=== PATIENT | female | born 1950 | race Caucasian/White ===

== ENCOUNTER → 2018-02-07 | Outpatient (CLI) | payer MEDICARE, OTHER ==
[~2018-02-07] MED LIST: ALBU90OI; ALBU90OI INH; ASCO500 PO; BUDE200IP; CEPH500 PO; Calcium 500 MG1 EACH PO; Desyrel150 MG; Desyrel150 MG PO; Desyrel50 MG PO; FLUSAL2505 INH; FOLGARD TABLET1 EACH PO; LEVSOD112; LEVSOD125 PO; MEDR5 PO; OXYC1TAB11; PSEU120ER PO; SALMOI6.5; SERT100 PO; Synthroid125 MCG PO; THEO200ERA PO; THEO200ERB; TOCO400 PO; TRAZ50; Zoloft100 MG PO
[2018-02-08 11:54] LABS: Source, Urine Clean Catch
[2018-02-08 16:36] LABS: Appearance, Urine Hazy (Clear); Bilirubin, Urine Neg (Neg); Blood, Urine 1+ (Neg); Color, Urine Yellow (P-Yellow); Glucose Qualitative, Urine Neg (Neg); Ketones, Urine Neg (Neg); Leukocyte Esterase, Urine 3+ (Neg); Nitrite, Urine Pos (Neg); Protein, Urine Neg (Neg); Specific Gravity, Urine 1.015 (1.003-1.022); Urobilinogen, Urine NORM (Normal)
[2018-02-08 17:10] LABS: Bacteria Many /hpf; Squamous Epithelial Cells Few /hpf (Few)
== END ==
LOC: LAB 17:20 → LAB SHORT 17:20
PROVIDERS: Nurse Practitioner Family
DX: R82.90 Unspecified abnormal findings in urine (principal)
CPT/HCPCS: 81001; 87077; 87086; 87186

== ENCOUNTER → 2018-09-28 | Outpatient (CLI) | payer MEDICARE, OTHER ==
[~2018-09-28] MED LIST changes: +BIOTIN1 MG PO; +COENZYME Q-1050 MG PO; +LEVSOD100; +NAPR500 PO; +THEO300ERA PO; +VITAMIN D-32000 UNIT PO
[2018-09-28 19:49] LABS: Appearance, Urine Clear (Clear); Bilirubin, Urine Neg (Neg); Blood, Urine 1+ (Neg); Color, Urine Yellow (P-Yellow); Glucose Qualitative, Urine Neg (Neg); Ketones, Urine Neg (Neg); Leukocyte Esterase, Urine 3+ (Neg); Nitrite, Urine Neg (Neg); Protein, Urine Neg (Neg); Specific Gravity, Urine 1.025 (1.003-1.022); Urobilinogen, Urine NORM (Normal)
[2018-09-28 20:17] LABS: White Blood Cells, Urine 25-50 /hpf (0-5)
[2018-09-28 20:18] LABS: Bacteria Few /hpf; Red Blood Cells, Urine 0-2 /hpf (0-2); Squamous Epithelial Cells Rare /hpf (Few)
== END ==
LOC: LAB 16:00 → LAB SHORT 16:00
PROVIDERS: Nurse Practitioner Family
DX: R82.90 Unspecified abnormal findings in urine (principal)
CPT/HCPCS: 81001; 87077; 87086; 87186

== ENCOUNTER 2018-10-19 09:57 | Day surgery (SDC) | payer MEDICARE, OTHER ==
[~2018-10-19] VITALS: Ht 165.1 cm; Wt 70.8 kg
--- NOTE | 2018-10-19 10:21 | NUR ---
10/19/18 1021 Bartolo Benton History, Chart, Medications and Allergies reviewed before start of procedure.MONITOR INTACT WITH CONTINUOUS PULSE OXIMETRY AND INTERMITTENT BP.3-LEAD EKG REVIEWED WITH PHYSICIAN PRIOR TO START OF PROCEDURE.O2 VIA N/C INTACT THROUGHOUT SEDATION/PROCEDURE. Patient confirms NPO status and agrees with scheduled surgery.PATIENT DETERMINED TO BE ASA APPROPRIATE FOR PROPOFOL SEDATION PRIOR TO START OF PROCEDURE BY DR. SINGH.
--- NOTE | 2018-10-19 10:21 | NUR ---
ADMITTED TO UNIT VSS ALERT ORIENTED RIDE WENT HOME EXPECTING CALL WHEN PATIENT READY.Lungs clear T/O to Auscultation. Patient States Post-Procedure ride home has been arranged.
--- NOTE | 2018-10-19 11:19 | NUR ---
PT GIVEN MEDS PER MD ORDERS. PT EATING AND DRINKING. TOLERATING WELL.
--- NOTE | 2018-10-19 11:41 | NUR ---
Patient States Post-Procedure ride home has been arranged. Discharge instructions reviewed with patient. Patient verbalizes understanding. Copy given to patient to take home. RX CALLED TO [facility] Discharged via wheelchair to private car for ride home.
== END 2018-10-19 11:42 | disposition home or self-care (01) ==
LOC: ORSCMMR 09:57
PROVIDERS: Internal Medicine Gastroenterology
PROC: 0DB68ZX Excision of Stomach, Via Natural or Artificial Opening Endoscopic, Diagnostic (ICD-10-PCS; principal; 2018-10-19 10:30)
DX: R10.13 Epigastric pain (principal); K25.9 Gastric ulcer, unspecified as acute or chronic, without hemorrhage or perforation; J45.909 Unspecified asthma, uncomplicated; F32.9 Major depressive disorder, single episode, unspecified; Z98.84 Bariatric surgery status; E03.9 Hypothyroidism, unspecified; Z79.899 Other long term (current) drug therapy
CPT/HCPCS: 88305; 88341; 88342; C9113; J7120

== ENCOUNTER 2019-06-27 16:25 | Emergency (ER) | payer MEDICARE, OTHER ==
[~2019-06-27] VITALS: Ht 165.1 cm; Wt 62.1 kg
[2019-06-27] MEDS ORDERED: LEVSOD112 PO (17:43)
[2019-06-27] MEDS ORDERED: OMEP20ER PO (17:44)
[2019-06-27] MEDS ORDERED: CALCIUM 600 +1 EA11 PO (17:44)
[2019-06-27] MEDS ORDERED: Roxicodone5 MG PO (17:55)
[2019-06-27] MEDS ORDERED: BUPR100 PO (18:12)
== END 2019-06-27 18:27 | disposition home or self-care (01) ==
LOC: ER 16:25
DX: S42.211A Unspecified displaced fracture of surgical neck of right humerus, initial encounter for closed fracture (principal); W01.198A Fall on same level from slipping, tripping and stumbling with subsequent striking against other object, initial encounter; Z91.040 Latex allergy status; Z88.8 Allergy status to other drugs, medicaments and biological substances; Z79.899 Other long term (current) drug therapy; J45.909 Unspecified asthma, uncomplicated; Z87.891 Personal history of nicotine dependence
CPT/HCPCS: 73060; 99283-25

== ENCOUNTER 2019-07-03 14:34 | Day surgery (SDC) | payer MEDICARE ==
[~2019-07-03] VITALS: Ht 160 cm; Wt 63.1 kg
[~2019-07-03 14:34] MED LIST changes: +BUPR100 PO; +CALCIUM 600 +1 EA11 PO; +LEVSOD112 PO; +OMEP20ER PO; +Roxicodone5 MG PO
--- NOTE | 2019-07-03 15:05 | NUR ---
07/03/19 1505 Mitch Irving 1 IV ATTEMPT LEFT AC.
--- NOTE | 2019-07-03 16:10 | NUR ---
07/03/19 1610 Leila Gomez A GENERALIZED BRUISING TO RIGHT ARM, SHOULER AND CHEST AREA.
== END 2019-07-03 18:44 | disposition home or self-care (01) ==
LOC: ORSCSDS 14:34
PROVIDERS: Orthopaedic Surgery
PROC: 0PSC04Z Reposition Right Humeral Head with Internal Fixation Device, Open Approach (ICD-10-PCS; principal; 2019-07-03 15:15)
DX: S42.201A Unspecified fracture of upper end of right humerus, initial encounter for closed fracture (principal); J44.9 Chronic obstructive pulmonary disease, unspecified; Z87.891 Personal history of nicotine dependence; E03.9 Hypothyroidism, unspecified; Z79.899 Other long term (current) drug therapy; F41.8 Other specified anxiety disorders; K21.9 Gastro-esophageal reflux disease without esophagitis
CPT/HCPCS: C1713; J0690; J1100; J1885; J2250; J2405; J2704; J2795; J3010; J3370; J7120

== ENCOUNTER 2020-04-25 15:21 | Emergency (ER) | payer OTHER ==
[~2020-04-25] VITALS: Ht 165.1 cm; Wt 63.5 kg
[2020-04-25] MEDS ORDERED: Naprosyn500 MG PO (16:26)
== END 2020-04-25 16:50 | disposition home or self-care (01) ==
LOC: ER 15:21
DX: S52.571A Other intraarticular fracture of lower end of right radius, initial encounter for closed fracture (principal); S52.611A Displaced fracture of right ulna styloid process, initial encounter for closed fracture; Z91.09 Other allergy status, other than to drugs and biological substances; Z91.040 Latex allergy status; Z79.899 Other long term (current) drug therapy; J45.909 Unspecified asthma, uncomplicated; W18.30XA Fall on same level, unspecified, initial encounter
CPT/HCPCS: 29125; 73110; 99283-25

== ENCOUNTER 2021-04-17 03:06 | Inpatient (IN) | payer MEDICARE ==
[~2021-04-17] VITALS: Ht 165.1 cm; Wt 65.2 kg
[~2021-04-17 03:06] MED LIST changes: +Naprosyn500 MG PO; +TRAZ50 PO
[2021-04-17] MEDS ORDERED: MEDR2.5 PO (04:44)
[2021-04-17] MEDS ORDERED: BUPR100ER PO (04:45)
[2021-04-17] MEDS ORDERED: ESTRADIOL 0.5 MG PO (04:46)
[2021-04-17 05:04] LABS: BASOPHILS ABSOLUTE AUTO 0.03 K/mm3 (0.00-0.23); BASOPHILS PERCENT AUTO 0 % (0-2); EOSINOPHILS ABSOLUTE AUTO 0.03 K/mm3 (0.00-0.68); EOSINOPHILS PERCENT AUTO 0 % (0-6); Hematocrit 36.8 % (33.0-51.0); Hemoglobin 12.5 g/dL (11.5-16.0); IMMATURE GRAN ABSOLUTE AUTO 0.05 K/mm3 (0.00-0.10); IMMATURE GRAN PERCENT AUTO 1 % (0-1); LYMPHOCYTES ABSOLUTE AUTO 1.33 K/mm3 (0.84-5.20); LYMPHOCYTES PERCENT AUTO 12 % (21-46); MONOCYTES PERCENT AUTO 4 % (4-13); Mean Corpuscular HGB 26.5 pg (26.0-34.0); Mean Corpuscular Volume 78 fL (80-100); Mean Platelet Volume 11.1 fL (9.1-12.4); NEUTROPHILS ABSOLUTE AUTO 8.93 K/mm3 (1.96-9.15); NEUTROPHILS PERCENT AUTO 83 % (41-73); Platelet Count 163 K/mm3 (150-400); RDW Coefficient Variation 13.7 % (11.7-14.2); RDW Standard Deviation 38.9 fL (35.1-46.3); Red Blood Cell Count 4.71 M/mm3 (3.80-5.20); White Blood Cell Count 10.77 K/mm3 (4.00-11.30)
[2021-04-17 05:24] LABS: Alanine Aminotransfer (ALT/SGP 19 U/L (12-78); Albumin, Blood 3.5 g/dL (3.4-5.0); Alk Phos 91 U/L (50-136); Anion Gap 8 mmol/L (6-16); Aspartate Aminotrans (AST/SGOT 20 U/L (12-37); Bilirubin, Total 0.5 mg/dL (0.1-1.0); Blood Urea Nitrogen 14 mg/dL (8-24); Bun/Creatinine Ratio 16.7 (12.0-20.0); CO2, Blood 21 mmol/L (21-32); Calcium, Blood 8.6 mg/dL (8.5-10.1); Chloride, Blood 112 mmol/L (98-108); Creatinine, Blood 0.84 mg/dL (0.40-1.00); Globulin, Blood 3.5 g/dL (2.2-4.0); Glomerular Filtration Rate >60 (60-); Glucose, Blood 110 mg/dL (70-99); Potassium, Blood 3.6 mmol/L (3.5-5.5); Sodium, Blood 141 mmol/L (136-145)
[2021-04-17 05:54] LABS: SARS-Cov-2 (COVID-19) PCR, MMC NEGATIVE (NEGATIVE)
[2021-04-17 06:03] LABS: International Normalized Ratio 1.04; Prothrombin Time Results 11.2 Sec (9.7-11.5)
--- NOTE | 2021-04-17 11:04 | NUR ---
ASSUMED CARE OF PT. PT TRANSFERED FROM MEDICAL FLOOR TO [facility]. PT A/A/O X3. PT RESTING COMFORTABLY, CALL LIGHT WITHIN REACH. BED LOCKED W/ ALARM ON. PT STATES NO NEEDS AT THIS TIME, WILL CONTINUE TO MONITOR.
--- NOTE | 2021-04-17 16:18 | NUR ---
REPORT GIVEN TO ELTON CORCORAN & NAAIS CORCORAN FROM DAY SURGERY, PT TAKEN THERE FOR SURGERY.
--- NOTE | 2021-04-17 16:39 | NUR ---
INTO SDS VIA BED FROM ROOM AT [facility]. History, Chart, Medications and Allergies reviewed before start of procedure.Patient confirms NPO status and agrees with scheduled surgery. Lungs clear T/O to Auscultation. Surgical site prepped with 2% Chlorhexidine cloth wipe.
--- NOTE | 2021-04-17 18:21 | NUR ---
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 VSS. CONT PULSE OX MONITORING, 02 HIGH 90S. PT A&0 X3. PLEASANT MOOD. WAITING FOR PT TO RETURN FROM SURGERY.
--- NOTE | 2021-04-17 18:45 | NUR ---
TRANSFER TO [address] [place] [address]
--- NOTE | 2021-04-17 21:21 | NUR ---
PATIENT RATES PAIN 5/10 WHEN I ASK HER WHAT HER PAIN TOLERANCE LEVEL SHE TELLS ME SHE IS COMFORTABLE AT 5/10. NO INTERVENTION DONE AT THIS TIME. JUST RECEIVED ORDERS FROM MD AND WILL OFFER PATIENT SOMETHING TO EAT/DRINK AND REASSESS PAIN AT THAT TIME. PATIENT STABLE AND SLEEPING, APPEARS COMFORTABLE AT THIS TIME
--- NOTE | 2021-04-17 21:42 | NUR ---
PATIENT EATING AND DRINKING AND TALKING STATES PAIN IS 5/10 BUT IS VERBALIZING THAT SHE WOULD LIKE SOMETHING FOR PAIN WHEN SHE FINISHES EATING. SHE STATES SHE IS HAVING NO NAUSEA AT THIS TIME
--- NOTE | 2021-04-17 22:22 | NUR ---
PATIENT WAS ABLE TO TRANSFER TO BEDSIDE COMMODE WITH MINIMAL HELP. SHE VOIDED URINE AND WAS ABLE TO GET BACK INTO BED WITH AGAIN MINIMAL ASSIST. AFTER THIS ACTIVITY SHE RATED HER PAIN AT 5/10 AND STATES HER TOLERABLE LEVEL IS 4/10. PATIENT IS COMFORTABLE, IN BED AND HAS NO NEEDS AT THIS TIME
--- NOTE | 2021-04-18 02:11 | NUR ---
PT UP TO BEDSIDE COMMODE W/ASSISTANCE. SHIRA CARE DONE, HAIR BRUSHED, REPOSITIONED IN BED AND BOOSTED UP.
[2021-04-18 06:08] LABS: BASOPHILS ABSOLUTE AUTO 0.02 K/mm3 (0.00-0.23); BASOPHILS PERCENT AUTO 0 % (0-2); EOSINOPHILS ABSOLUTE AUTO 0.03 K/mm3 (0.00-0.68); EOSINOPHILS PERCENT AUTO 0 % (0-6); Hematocrit 28.4 % (33.0-51.0); Hemoglobin 9.4 g/dL (11.5-16.0); IMMATURE GRAN ABSOLUTE AUTO 0.06 K/mm3 (0.00-0.10); IMMATURE GRAN PERCENT AUTO 1 % (0-1); LYMPHOCYTES ABSOLUTE AUTO 2.11 K/mm3 (0.84-5.20); LYMPHOCYTES PERCENT AUTO 18 % (21-46); MONOCYTES ABSOLUTE AUTO 1.13 K/mm3 (0.16-1.47); MONOCYTES PERCENT AUTO 10 % (4-13); Mean Corpuscular HGB 26.3 pg (26.0-34.0); Mean Corpuscular HGB Conc 33.1 g/dL (31.5-36.5); Mean Corpuscular Volume 79 fL (80-100); Mean Platelet Volume 10.8 fL (9.1-12.4); NEUTROPHILS ABSOLUTE AUTO 8.35 K/mm3 (1.96-9.15); NEUTROPHILS PERCENT AUTO 71 % (41-73); Platelet Count 162 K/mm3 (150-400); RDW Coefficient Variation 13.7 % (11.7-14.2); RDW Standard Deviation 39.9 fL (35.1-46.3); Red Blood Cell Count 3.58 M/mm3 (3.80-5.20)
--- NOTE | 2021-04-18 06:26 | NUR ---
0626: PATIENT IS A PLEASANT 70 YEAR OLD FEMALE POST OP LEFT HIP PINNING. 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 I HELPED HER ATTEMPT TO GET COMFORTABLE THROUGH THE NIGHT WELL TRY AND HELP ALLEVIATE SOME OF HER PAIN WITH MEDICATION. PATIENT VSS, TOLERATING PO WELL, UP TO COMODE WITH ASSIST. DRESSING ON LEFT HIP DRY AND INTACT. FOAM TAPE SECURE.PAS ON AND FUNCTIONING, ALL PERSONAL ITEMS ON THE COUNTER INCLUDING CELL PHONE AND RINGS. WILL GIVE REPORT TO ONCOMING DAY SHIFT RN AND PASS ON CARE.
[2021-04-18 06:29] LABS: Anion Gap 5 mmol/L (6-16); Blood Urea Nitrogen 15 mg/dL (8-24); Bun/Creatinine Ratio 16.9 (12.0-20.0); CO2, Blood 24 mmol/L (21-32); Calcium, Blood 7.8 mg/dL (8.5-10.1); Chloride, Blood 107 mmol/L (98-108); Creatinine, Blood 0.89 mg/dL (0.40-1.00); Glomerular Filtration Rate >60 (60-); Glucose, Blood 110 mg/dL (70-99); Potassium, Blood 3.9 mmol/L (3.5-5.5); Sodium, Blood 136 mmol/L (136-145)
--- NOTE | 2021-04-18 10:52 | NUR ---
ICE PACK THERAPY APPLIED TO THE LEFT HIP PER NEW ORDERS- INFORMED PATIENT OF BENEFITS AND REASONING. PT STATES UNDERSTANDING. PATIENT ASSISTED INTO NEW POSITIONING ONTO LEFT SIDE. RESTING COMFORTABLY WITH CALL LIGHT IN REACH. DENIES OTHER NEEDS AT PRESENT. PAIN RATED AT 5/10 DENIES NEEDS FOR PAIN MEDICATION AT PRESENT.
--- NOTE | 2021-04-18 13:13 | NUR ---
IN ROOM SPEAKING TO PATIENT ABOUT DISCHARE REHAB PLANS. TOOK ICE OFF OF HIP AND ASSISTED PATIENT ONTO BEDPAN TO VOID. SHIRA CARE PERFORMED. PATIENT REPOSITIONED WITH PILLOW SUPPORT TO LEFT TILT. PAIN MEDICATION GIVEN PER PRN ORDERS FOR C/O OF LEFT HIP PAIN. CALL LIGHT IN REACH. PATIENT DENIES OTHER NEEDS AT PRESENT. PATIENT TALKING TO MEMBERS OF RESTORATIONISM ON PHONE FOR SUPPORT.
--- NOTE | 2021-04-18 23:21 | NUR ---
PT GIVEN 25MCG FOR LEFT LEG PAIN/SPASMING. PT REPOSITONED TO LEFT SIDE, ICE PACK REMOVED. PT'S WATER GLASS REFILLED WITH ICE WATER. BED IN LOW, LOCKED POSITION-CALL LIGHT IN REACH.
--- NOTE | 2021-04-19 05:25 | NUR ---
PT WITH INTERMITTENT PAIN THROUGHOUT THE EVENING/NIGHT. RX'D WITH IV FENTANYL AND PO OXYCODONE. ONE PERSON ASSIST UP TO BEDSIDE COMMODE TIMES 2 FOR CLEAR, YELLOW URINE. FOAM TAPE IS C/D/I. PT REPOSTIONED WITH ASSIST AND SOMEWHAT INDEPENDANTLY. PT HAD [employer] FOR A SNACK AFTER DINNER. ON THE PHONE WITH MULTIPLE PEOPLE DURING THE EVENING. PT GOT SOME GOOD SLEEP AFTER PAIN MEDS.
--- NOTE | 2021-04-19 10:23 | NUR ---
PATIENT RESTING COMFORTABLY IN BED, RESPITATIONS EVEN AND UNLABORED, CALL LIGHT IN REACH.
--- NOTE | 2021-04-19 16:02 | NUR ---
ICE COMPRESS TO LEFT HIP AND PATIENT REPOSITIONED IN BED TO RIGHT TILT WITH SCD AND TEDS ON/ PATIENT WATER REFILLED. DENIES OTHER NEEDS OR COMPLICATIONS RIGHT NOW. CALL LIGHT IN REACH.
--- NOTE | 2021-04-19 17:59 | NUR ---
PATIENT ASSISTED INTO LEFT TILT POSITION, REAPPLIED ICE PACK TO LEFT HIP FOR ICE THERAPY, PATIENT TALKING ON THE PHONE WITH FRIENDS DENIES NEEDS AND SEEMS IN GOOD SPIRITS. CALL LIGHT IN REACH.
--- NOTE | 2021-04-20 01:58 | NUR ---
PT GOT UP TO THE BSC WITH OUT ALERTING STAFF. PT ASSISTED BACK TO BED AFTER VOIDING BY NURSE VILLAVICENCIO.
--- NOTE | 2021-04-20 04:15 | NUR ---
PT STATES LEFT HIP AND THIGH "SPASMING." PAIN MEDS GIVEN, WITH ONLY SLIGHT RELIEF. ICE PACK PLACED ON OPSITE AREA. WILL REEVALUATE AFTER MEDS HAVE HAD MORE TIME TO TAKE EFFECT.
--- NOTE | 2021-04-20 05:48 | NUR ---
PT STARTED SHIFT IN SEEMING GOOD SPIRITS, HAD BEEN TALKING TO FAMILY ABOUT HER CARE AFTER HOSPITAL. SOUNDS LIKE SHE IS GETTING SUPPORT FROM SEVERAL FAMILY MEMBERS. 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 SHE HAS BEEN GETTING UP TO THE BEDSIDE COMMODE SEVERAL TIMES THIS SHIFT, AND IS DOING WELL WITH THAT WITH STANDBY SUPPORT. SHE DID, HOWEVER, GET UP TO THE BSC BY HERSELF ONCE WITHOUT CALLING, AND WAS REMINDED THAT SHE STILL NEEDS TO CALL STAFF FOR HELP WITH THIS. 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 SHE HAS BEEN TAKING FLUIDS WELL, STILL NO BM, BUT SHE SAYS THAT IT IS NORMAL FOR HER TO GO A LONG TIME WITHOUT ONE.
--- NOTE | 2021-04-20 10:29 | NUR ---
PT MADE DECISION TO GO HOME DESPITE DOCNEELA'S CONCERNS. SHE IS CONCERNED ABOUT BEING ADMITTED TO SNF AND THEN NOT ABLE TO ATTEND HER FATHER'S . HAS BEEN UP AND OUT OF BED TO CHAIR. DID HAVE A LARGE BM THIS MORNING. IS WORKING WITH FAMILY MEMBERS TO BE AVAILABLE TO CARE FOR HER AT HOME.
[2021-04-20] MEDS ORDERED: ASPI325EC PO (12:32)
[2021-04-20] MEDS ORDERED: SENN187 PO (12:32)
[2021-04-20] MEDS ORDERED: MIRALAX17 GM PO (12:33)
[2021-04-20] MEDS ORDERED: OXYC5 PO (12:33)
--- NOTE | 2021-04-20 13:41 | NUR ---
PT DISCHARGED TO HOME. HER FRIEND/NEIGHBOR IS TAKING HER HOME. ALL DISCHARGE INSTRUCTIONS REVIEWED AND QUESTIONS ANSWERED. PT DISCHARGED WITH ALL HER BELONGINGS, INCLUDING PHONE AND PURSE. VSS.
== END 2021-04-20 13:15 | disposition home or self-care (01) | DRG 482 ==
LOC: ER 03:06 → MEDS 05:53 → ORSCIP 05:53 → MEDS 07:25 → ORSCIP 10:17
PROVIDERS: Emergency Medicine; Orthopaedic Surgery; ADMIT Family Medicine
PROC: 0QS736Z Reposition Left Upper Femur with Intramedullary Internal Fixation Device, Percutaneous Approach (ICD-10-PCS; principal; 2021-04-17 16:45)
DX: S72.142A Displaced intertrochanteric fracture of left femur, initial encounter for closed fracture (principal); W18.30XA Fall on same level, unspecified, initial encounter; E03.9 Hypothyroidism, unspecified; K21.9 Gastro-esophageal reflux disease without esophagitis; J45.909 Unspecified asthma, uncomplicated; Z91.040 Latex allergy status; Z88.8 Allergy status to other drugs, medicaments and biological substances; Z98.890 Other specified postprocedural states; Z79.899 Other long term (current) drug therapy; Z79.82 Long term (current) use of aspirin; Z87.891 Personal history of nicotine dependence; F32.9 Major depressive disorder, single episode, unspecified; Z90.49 Acquired absence of other specified parts of digestive tract; Z20.822 Contact with and (suspected) exposure to COVID-19
CPT/HCPCS: 36415; 73502; 80048; 80053; 85025; 85610; 86850; 86900; 86901; 93005; 93010; 96374; 97110; 97116; 97161; 97166; 97530; 97535; 99284-25; A9270; C1713; J0171; J0690; J1100; J1170; J2250; J2405; J2704; J3010; J7030; J7120; U0004